=== PATIENT | female | born 1960 | race Two or more races ===

== ENCOUNTER 2017-04-05 22:27 | Emergency (ER) | payer SELFPAY ==
[2017-04-05] MEDS ORDERED: DEXAMETHASONE SOD PHOSPHATE 10 MG/1 ML VIAL IVPUSH ONE (22:32)
[2017-04-05] MEDS ORDERED: SODIUM CHLORIDE 0.9% 1000 ML INFUS.BAG IV ONE (22:32)
[2017-04-05] MEDS ORDERED: methylPREDNISolone NA SUCC 125 MG/2 ML VIAL IVPUSH ONE (22:38)
--- NOTE | 2017-04-05 22:38 | PDOC ---
History of Present Illness - General Stated Complaint: CHOKING Time Seen by Provider: 04/05/17 22:32 - History of Present Illness Initial Comments: 04/05/17 22:51 CHIEF COMPLAINT: allergic reaction HISTORY OF PRESENT ILLNESS: 56 yo F with no PMH BIBEMS to ED with swelling to throat s/p eating [place] food. Patient reports she was eating salad with "mostly lettuce, and some type of yellow, sweet dressing" and drinking "just the water of the soup" when she suddenly felt swelling to her throat and was unable to breathe. She denies having any allergies in the past. Patient is unable to speak in sentences on arrival to ED and is only able to mutter a few words in a hoarse voice. PAST MEDICAL HISTORY: Denies past medical history FAMILY HISTORY: Denies SOCIAL HISTORY: Denies tobacco, alcohol, illicit drug use. SURGICAL HISTORY: Denies ALLERGIES: No known drug allergies REVIEW OF SYSTEMS General/Constitutional: Denies fever or chills. Denies weakness. HEENT: Swelling to throat. Cardiovascular: Denies chest pain or shortness of breath. Respiratory: Denies cough, wheezing, or hemoptysis. Gastrointestinal: Denies nausea, vomiting, diarrhea or constipation. Denies rectal bleeding. Genitourinary: Denies dysuria, frequency, or change in urination. Musculoskeletal: Denies joint or muscle swelling or pain. Denies neck or back pain. Skin: Denies rash or easy bruising. PHYSICAL EXAM General Appearance: Well-appearing, appropriately dressed. No apparent distress. HEENT: Swelling to posterior tongue, unable to visualize uvula. Hoarse voice. EOMI, PERRLA, normal ENT inspection, TMs normal, pharynx normal. No conjunctival pallor. No photophobia, scleral icterus. Neck: Supple. Trachea midline. No tenderness, rigidity, carotid bruit, stridor , lymphadenopathy, or thyromegaly. Respiratory/Chest: Lungs CTAB. No shortness of breath, chest tenderness, respiratory distress, accessory muscle use. No crackles, rales, rhonchi, stridor , wheezing, dullness Cardiovascular: RRR. S1, S2. Gastrointestinal/Abdominal: Normal bowel sounds. Abdomen soft, non-distended. No tenderness or rebound tenderness. No organomegaly, pulsatile mass, guarding , hernia, hepatomegaly, splenomegaly. Musculoskeletal/Extremities: Normal inspection. FROM of all extremities, normal capillary refill. Pelvis Stable. No CVA tenderness. No tenderness to extremities, pedal edema, swelling, erythema or deformity. Integumentary: Appropriate color, dry, warm. No cyanosis, erythema, jaundice or rash Neurologic: financial advisor trainee II-XII intact. Fully oriented, alert. Appropriate mood/affect. Motor strength 5/5. No appreciable EOM palsy, facial droop or sensory deficit. Past History - Past Medical History Allergies/Adverse Reactions: Allergies Allergy/AdvReac Type Severity Reaction Status Date / Time No Known Allergies Allergy Verified 04/05/17 23:59 Home Medications: Ambulatory Orders Epinephrine (Epi-Pen 0.3MG) [Epipen 0.3MG -] 0.3 mg IM ASDIR #2 pens 04/06/17 Prednisone [Deltasone -] 60 mg PO DAILY #12 tablet 04/06/17 Medical Decision Making - Medical Decision Making 04/05/17 23:00 56 yo F with no PMH BIBEMS to ED with anaphylactic reaction s/p eating [place] food. -Epi 0.3 mcg IM -IVF, Solumedrol, Benadryl, Pepcid Patient immediately given epi IM. Within 5 minutes patient was able to speak in full sentences. 04/06/17 00:39 Patient reassessed, at this time she reports feeling "much better" and back to her baseline. Patient's family is at bedside and repeatedly request that she can go home. Discussed with patient and family possibility for rebound effect and that she should stay for observation for a few hours; family and patient persistently request to go home. Prednisone, epipen rx sent to pharm. Advised patient to take medication as prescribed and follow up with strapper for food allergy testing. Advised patient of signs and symptoms for return to ED. Patient verbalized understanding and agrees to plan. *DC/Admit/Observation/Transfer Diagnosis at time of Disposition: Anaphylaxis due to food Qualifiers: Encounter type: initial encounter Qualified Code(s): T78.00XA - Anaphylactic reaction due to unspecified food, initial encounter - Discharge Dispostion Disposition: HOME Condition at time of disposition: Stable Admit: No - Prescriptions Prescriptions: Epinephrine (Epi-Pen 0.3MG) [Epipen 0.3MG -] 0.3 mg IM ASDIR #2 pens Prednisone [Deltasone -] 60 mg PO DAILY #12 tablet - Referrals - Patient Instructions Printed Discharge Instructions: DI for Anaphylaxis Additional Instructions: Please take medications as prescribed and follow up with an strapper to determine the cause of your allergic reaction. If you experience similar symptoms with difficulty breathing, swallowing, or swelling of your throat, mouth, tongue, lips, or neck, please use the Epipen as directed and go to the nearest ER. Por favor, tome los medicamentos recetados y becca un seguimiento con un alerg logo para determinar la causa de tellez reaccin alrgica. Si experimenta sntomas similares con dificultad para respirar, tragar o hinchazn de la garganta, boca , lengua, labios o lenny, use el Epipen segn las indicaciones y ir a la júnior de emergencia inmediamente. Print Language: SLOV[place] - Post Discharge Activity
[2017-04-05] MEDS ORDERED: EPINEPHrine/PF 1 MG/1 ML (1:1,000) AMPULE ONE (22:43)
[2017-04-05] MEDS ORDERED: FAMOTIDINE 20 MG/50 ML IVPB 20 MG/50 ML MG IVPB ONE ×2 (23:00→23:45)
--- NOTE | 2017-04-05 23:27 | PDOC ---
Medical Decision Making - Medical Decision Making 04/05/17 23:27 Pt seen by the Advanced Practice Provider under my direct supervision Pt interviewed and examined Ancillary studies reviewed I agree with plan as outlined by the Advanced Practice Provider BRAD Salgado
[2017-04-06 00:28] VITALS: BP 126/82; PULSE 82; TEMP 98.4; BMI 25.0
== END 2017-04-06 00:43 | disposition home or self-care (01) ==
LOC: JER 22:27
PROC: 3E033GC Introduction of Other Therapeutic Substance into Peripheral Vein, Percutaneous Approach (ICD-10-PCS; principal; 2017-04-05)
PROC: 3E033GC Introduction of Other Therapeutic Substance into Peripheral Vein, Percutaneous Approach (ICD-10-PCS; 2017-04-05)
PROC: 3E0333Z Introduction of Anti-inflammatory into Peripheral Vein, Percutaneous Approach (ICD-10-PCS; 2017-04-05)
PROC: 3E033NZ Introduction of Analgesics, Hypnotics, Sedatives into Peripheral Vein, Percutaneous Approach (ICD-10-PCS; 2017-04-05)
DX: T78.00XA Anaphylactic reaction due to unspecified food, initial encounter (principal)
CPT/HCPCS: 99281-25; J1100